=== PATIENT | female | born 1985 | race Caucasian/White ===

== ENCOUNTER 2016-05-08 19:41 | Emergency (ER) | payer OTHER ==
--- NOTE | 2016-05-08 19:48 | ER Document Report ---
ED Medical Screen (RME) - General Stated Complaint: FELL AT WORK HIP AND SHOULDER PAIN Mode of Arrival: Ambulatory Information source: Patient Notes: pt presents to the ED with c/o right shoulder pain after tripping over a step stool at work. Did not hit her head, Reports she has a previous shoulder injury. Took norco right before she tripped. I have greeted and performed a rapid initial assessment of this patient. A comprehensive ED assessment and evaluation of the patient, analysis of test results and completion of the medical decision making process will be conducted by additional ED providers. TRAVEL OUTSIDE OF THE [place] IN LAST 30 DAYS: No - Related Data Allergies/Adverse Reactions: latex [Latex] Allergy (Verified 12/15/13 12:20) RASH, burning in sensitive areas Past Medical History - Past Medical History Cardiac Medical History: Denies: Hx Coronary Artery Disease, Hx Heart Attack, Hx Hypertension Pulmonary Medical History: Denies: Hx Asthma, Hx Bronchitis, Hx COPD, Hx Pneumonia Neurological Medical History: Denies: Hx Cerebrovascular Accident, Hx Seizures GI Medical History: Denies: Hx Hepatitis, Hx Hiatal Hernia, Hx Ulcer Musculoskeltal Medical History: Reports Hx Arthritis - Hands, collar bone Infectious Medical History: Denies: Hx Hepatitis Past Surgical History: Reports: Hx Hysterectomy. Denies: Hx Mastectomy, Hx Open Heart Surgery, Hx Pacemaker - Immunizations Hx Diphtheria, Pertussis, Tetanus Vaccination: No
[2016-05-08] MEDS ORDERED: OXYCODONE-ACETAMINOPHEN 5-325 MG TABLET PO ONE (21:32)
--- NOTE | 2016-05-08 21:37 | ER Document Report ---
ED Fall - General Chief Complaint: Fall Injury Stated Complaint: FELL AT WORK HIP AND SHOULDER PAIN Time seen by provider: 21:00 Mode of Arrival: Ambulatory Information source: Patient Notes: 30-year-old female presents to ED for right shoulder pain after tripping over a step stool at work. She states she did not hit her head but she does have bilateral hip pain and right shoulder pain. She says she took her [place] 30 minutes before she tripped over the distal. She states she has not had anything for pain since then. She states she is on pain management for chronic pain to the right shoulder and other areas. TRAVEL OUTSIDE OF THE [place] IN LAST 30 DAYS: No - HPI Occurred: This evening Where: Work Context: Tripped Associated symptoms: None Location of injury/pain: Hip, Shoulder - Right Quality of pain: Sharp Severity: Moderate Pain Level: 3 - Related data Allergies/Adverse Reactions: gabapentin Allergy (Verified 05/08/16 19:48) latex [Latex] Allergy (Verified 12/15/13 12:20) RASH, burning in sensitive areas Past Medical History - General Information source: Patient - Social History Smoking Status: Unknown if Ever Smoked Cigarette use (# per day): No Chew tobacco use (# tins/day): No Smoking Education Provided: No Frequency of alcohol use: None Drug Abuse: None Lives with: Family Family History: Reviewed & Not Pertinent Patient has suicidal ideation: No Patient has homicidal ideation: No - Past Medical History Cardiac Medical History: Reports: None Pulmonary Medical History: Reports: None EENT Medical History: Reports: None Neurological Medical History: Reports: None Endocrine Medical History: Reports: None Renal/ Medical History: Reports: None Malignancy Medical History: Reports: None GI Medical History: Reports: None Musculoskeltal Medical History: Reports Hx Arthritis - Hands, collar bone, Reports Hx Musculoskeletal Deformity, Reports Hx Musculoskeletal Trauma Skin Medical History: Reports None Psychiatric Medical History: Reports: None Traumatic Medical History: Reports: None Infectious Medical History: Reports: None Past Surgical History: Reports: Hx Hysterectomy - Immunizations Hx Diphtheria, Pertussis, Tetanus Vaccination: No Review of Systems - Review of Systems Constitutional: No symptoms reported EENT: No symptoms reported Cardiovascular: No symptoms reported Respiratory: No symptoms reported Gastrointestinal: No symptoms reported Genitourinary: No symptoms reported Female Genitourinary: No symptoms reported Musculoskeletal: Joint pain - Bilateral hips and right shoulder, Muscle pain, Muscle stiffness Skin: No symptoms reported Hematologic/Lymphatic: No symptoms reported Neurological/Psychological: No symptoms reported -: Yes All other systems reviewed and negative Physical Exam - Vital signs Vitals: Temp Pulse Resp BP Pulse Ox 97.8 F 87 18 137/79 H 99 05/08/16 19:49 05/08/16 19:49 05/08/16 19:49 05/08/16 19:49 05/08/16 19:49 Interpretation: Normal - General General appearance: Appears well, Alert - HEENT Head: Normocephalic, Atraumatic Eyes: Normal Pupils: PERRL - Respiratory Respiratory status: No respiratory distress Chest status: Nontender Breath sounds: Normal Chest palpation: Normal - Cardiovascular Rhythm: Regular Heart sounds: Normal auscultation Murmur: No - Abdominal Inspection: Normal Distension: No distension Bowel sounds: Normal Tenderness: Nontender Organomegaly: No organomegaly - Back Back: Normal, Nontender - Extremities General upper extremity: Normal inspection, Normal color, Normal temperature General lower extremity: Normal inspection, Nontender, Normal color, Normal ROM , Normal temperature, Normal weight bearing. No: Tia's sign Shoulder: Tender, Limited ROM Arm: Normal, Nontender Elbow: Normal, Nontender Hip: Tender. No: Abrasion, Deformity, Dislocation, Ecchymosis, Instability, Laceration, Pain with ROM, Unable to bear weight - Neurological Neuro grossly intact: Yes Cognition: Normal Orientation: AAOx4 [place] Coma Scale Eye Opening: Spontaneous [place] Coma Scale Verbal: Oriented [place] Coma Scale Motor: Obeys Commands Kai Coma Scale Total: 15 Speech: Normal Motor strength normal: LUE, RUE, LLE, RLE Sensory: Normal - Psychological Associated symptoms: Normal affect, Normal mood - Skin Skin Temperature: Warm Skin Moisture: Dry Skin Color: Normal Course - Re-evaluation Re-evalutation: 05/08/16 22:17 Discussed x-ray with patient. Discussed use of anti-inflammatories with patient as well as ice and heat packs. Discussed the need for exercise to the shoulder to prevent a frozen shoulder. If recommendations for patient to follow -up with Dr. Dong who is a sports medicine physician. Patient states she will need definitive follow-up with her pain management first. Patient was given one Percocet during the ER stay told that I cannot write any kind of prescriptions as she is on pain management. Patient verbalized understanding of this - Vital Signs Vital signs: Temp Pulse Resp BP Pulse Ox 97.8 F 87 18 137/79 H 99 05/08/16 19:49 05/08/16 19:49 05/08/16 19:49 05/08/16 19:49 05/08/16 19:49 - Diagnostic Test Radiology reviewed: Image reviewed, Reports reviewed Discharge - Discharge Clinical Impression: fall at work, Bilateral hip pain Right shoulder injury Qualifiers: Encounter type: initial encounter Qualified Code(s): S49.91XA - Unspecified injury of right shoulder and upper arm, initial encounter Condition: Stable Disposition: HOME, SELF-CARE Instructions: Exercise Program for the Shoulder ([facility]) Additional Instructions: Shoulder Injury You have injured your shoulder. This usually results from stretching or tearing of the tendons during trauma. Time and protection are required in order to heal properly. Many injuries are quite disabling, and should be taken seriously. Initial treatment includes cold packs and a sling to rest the shoulder. The physician has assessed the seriousness of your injury, and has outlined a treatment plan. Understand that this treatment may change, depending on how you progress. If a re-examination was recommended, it is important that you follow up as instructed. Some shoulder injuries (such as partial tear of the rotator cuff) are only suspected after you've failed to improve. Call us if there's severe pain, numbness, or loss of function. Oral Narcotic Medication You have been given a prescription for pain control. This medication is a narcotic. It's best taken with food, as nausea can result if taken on an empty stomach. Don't operate machinery or drive within six hours of taking this medication. Do not combine this medicine with alcohol, or with any medication which can cause sedation (such as cold tablets or sleeping pills) unless you get permission from the physician. Narcotics tend to cause constipation. If possible, drink plenty of fluids and eat a diet high in fiber and fruits. Anti-Inflammatory Medication You have received a prescription for an antiinflammatory agent. This is an excellent, safe drug for pain control. In addition, it has potent antiinflammatory effects which are beneficial, especially in the treatment of injuries, arthritis, or tendonitis. It's best to take this medicine with food. Persons with ulcer disease or allergy to aspirin should notify their physician of this before taking this drug. Take the medication exactly as prescribed. Don't take additional doses unless instructed to do so by your doctor. If you develop wheezing, shortness of breath, hives, faintness, stomach pain, vomiting, or dark black stools, return for re-evaluation at once. FOLLOW-UP CARE: If you have been referred to a physician for follow-up care, call the physician s office for an appointment as you were instructed or within the next two days. If you experience worsening or a significant change in your symptoms, notify the physician immediately or return to the Emergency Department at any time for re-evaluation. Forms: Elevated Blood Pressure Referrals: YVES DONG MD [ACTIVE STAFF] - Follow up as needed
[2016-05-08 22:17] VITALS: BP 130/78
== END 2016-05-08 22:16 | disposition home or self-care (01) ==
LOC: ER 19:41
DX: S49.91XA Unspecified injury of right shoulder and upper arm, initial encounter (principal); W01.0XXA Fall on same level from slipping, tripping and stumbling without subsequent striking against object, initial encounter; Y99.0 Civilian activity done for income or pay; M25.551 Pain in right hip; M25.552 Pain in left hip; M19.049 Primary osteoarthritis, unspecified hand; M19.019 Primary osteoarthritis, unspecified shoulder; M25.511 Pain in right shoulder; G89.29 Other chronic pain; Z79.891 Long term (current) use of opiate analgesic; Z88.6 Allergy status to analgesic agent; Z91.040 Latex allergy status
CPT/HCPCS: 99283